=== PATIENT | male | born 1945 | race Caucasian/White ===

== ENCOUNTER 2017-06-20 14:25 | Day surgery (SDC) | payer OTHER ==
[~2017-06-20] VITALS: Ht 170.2 cm; Wt 75.9 kg
[~2017-06-20 14:25] MED LIST: ALEV220T14 PO; AMLO5TAB22 PO; APIX5TAB PO; ASPI81TA82 PO; BIOT50005 PO; CARD120C4 PO; CENTTAB9 PO; CITRTAB8 PO; METO25 PO; NEBI5 PO; OMEG100037 PO; OMEP20CA5 PO; ROSU20 PO
[2017-06-20 15:00] VITALS: BP 146/93; PULSE 62; RESP 16; TEMP 98; O2SAT 100
[2017-06-20] MEDS ORDERED: OMEP20CA2 (15:00)
[2017-06-20] MEDS ORDERED: ROSU20 PO (15:00)
[2017-06-20] MEDS ORDERED: APIX5TAB PO (15:00)
[2017-06-20] MEDS ORDERED: DILT120C15 (15:00)
[2017-06-20] MEDS ORDERED: METO25TA3 PO (15:00)
[2017-06-20 15:27] LABS: AUTOMATED NEUTROPHIL # 4.5 TH/MM3 (1.8-7.7); BASOPHIL # 0.1 TH/MM3 (0-0.2); EOSINOPHIL # 0.6 TH/MM3 (0-0.4); EOSINOPHIL % 7.6 % (0.0-4.0); HEMATOCRIT 46.5 % (39.0-51.0); HEMO FLAGS DIFF FINAL; LYMPH % 20.6 % (9.0-44.0); LYMPHOCYTE # 1.6 TH/MM3 (1.0-4.8); MEAN CORPUSCULAR HEMOGLOBIN 30.8 PG (27.0-34.0); MEAN CORPUSCULAR HGB CONC 33.2 % (32.0-36.0); MONO % 10.8 % (0.0-8.0); PLATELET COUNT 201 TH/MM3 (150-450); RED CELL DISTRIBUTION WIDTH 13.3 % (11.6-17.2); WHITE BLOOD COUNT 7.6 TH/MM3 (4.0-11.0)
[2017-06-20 15:37] LABS: APTT (PATIENT) 28.2 SEC (24.3-30.1); BICARBONATE 30.6 MEQ/L (21.0-32.0); POTASSIUM 4.1 MEQ/L (3.5-5.1); PROTHROMBIN TIME - PATIENT 10.6 SEC (9.8-11.6)
[2017-06-20] MEDS ORDERED: INSULIN HUMAN REGULAR 1,000 UNITS/10 ML VIAL SQ PRN (16:00)
[2017-06-20] MEDS ORDERED: METOPROLOL TARTRATE 25 MG TAB PO PRN (16:00)
[2017-06-20] MEDS ORDERED: SODIUM CHLORID 0.9% 500 ML INJ 500 ML IV SCH (16:00)
[2017-06-20] MEDS ORDERED: LORazepam 1 MG TAB SL SCH (16:00)
[2017-06-20] MEDS ORDERED: SODIUM CHLORID 0.9% 500 ML IV PRN (16:00)
[2017-06-20] MEDS ORDERED: CHLORHEXIDINE GLUCONATE 2 % 1 PACK (2 CLOTHS) TOPICAL PRN (16:00)
[2017-06-20] MEDS ORDERED: POVIDONE IODINE 5% (ANTISEPSIS KIT) 4 APPLICATIONS EACH NARE PRN (16:00)
[2017-06-20] MEDS ORDERED: LACTATED RINGER'S 1000 ML IV PRN (16:00)
[2017-06-20] MEDS ORDERED: PROPOFOL 200 MG/20 ML AMP IV ONE (16:45)
[2017-06-20] MEDS ORDERED: HEPARIN-NS/PF INJ 500 ML ONE (16:55)
[2017-06-20] MEDS ORDERED: LEVOFLOXACIN 500 MG PREMIX INJ 100 ML IV ONE (17:11)
[2017-06-20] MEDS ORDERED: HEPARIN-D5W INJ 250 ML ONE (17:58)
[2017-06-20] MEDS ORDERED: HEPARIN SODIUM - IV 10,000 UNITS/10 ML VIAL ONE (17:59)
[2017-06-20] MEDS ORDERED: PROTAMINE SULFATE 50 MG/5 ML VIAL ONE (18:40)
[2017-06-20] MEDS ORDERED: ISOPROTERENOL HCL 1 MG/5 ML AMP ONE (18:41)
[2017-06-20] MEDS ORDERED: FUROSEMIDE 40 MG/4 ML VIAL ONE (19:13)
[2017-06-20] MEDS ORDERED: BACITRACIN OINT 0.9 GM PKT TOP ONE (19:15)
[2017-06-20] MEDS ORDERED: LORazepam 2 MG/ML VIAL IV PRN (19:15)
[2017-06-20] MEDS ORDERED: ATROPINE SULFATE 1 MG/ML VIAL IV PRN (19:15)
[2017-06-20] MEDS ORDERED: oxyCODONE/ACETAMINOPHEN 5 MG/325 MG TAB PO PRN ×2 (19:15)
[2017-06-20] MEDS ORDERED: SODIUM CHLOR 0.9% 250 ML INJ 250 ML IV PRN (19:15)
[2017-06-20] MEDS ORDERED: LIDOCAINE HCL 1% 50 ML VIAL INFIL PRN (19:15)
--- NOTE | 2017-06-20 19:26 | CATHPROC ---
[place] HIS Report Study Information Study Number Admission Scheduled Start Study Start [id number] Jun 20 2017 2:25PM 06/20/2017 Jun 20 2017 4:44PM [place] [facility] Electrophysiology Study Admit Source Facility Department Other [facility] Furnace Operator Physician and Clinical Staff Initial Jan Marie Research Executive Shoshana Suárez RCIS Other Anesthesia, CERTIFIED DETENTION DEPUTY Recorder Mary Jo Pleitez,RN Scrub Kristofer Holder,RT(R) Procedures Performed Procedure Location (Site) Vessel Name Ablation Procedure ICE CATHETER INSERT RA Atruim RF Ablation LT. ATRIUM LT. [facility]UM Equipment Time Network Systems Administrator Description Size Mfg Part Number Used/Scraped NEEDLE, TRANSSEPTAL NRG 98 16:46 [facility] [id number] Used C1 [employer]/ EP 16:46 KIT, TRANSDUCER / AFIB [id number] Used PACER [id number] CATHETER, TACTICATH ABLAT BUNDLE 16:46 [facility] Used 65 BUNDLE *[id number] BUNDLE [id number] CATHETER, FR7 OPTIMA SPIRAL 16:46 BUND[facility] FR7 *[id number]- Used BUNDLE BUNDLE [id number] 16:46 BUND[facility] CATHETER, JSN, QUAD BUNDLE FR 5 *[id number]- Used BUNDLE [id number] 16:46 BUND[facility] CATHETER, JSN, QUAD BUNDLE FR 5 *[id number]- Used BUNDLE [id number] SET, COOL POINT TUBING 16:46 BUNDLE-[facility] *[id number]- Used BUNDLE BUNDLE SHEATH, FR8.5 STEERABLE SM 16:46 BUNDLE-[facility] 71CM [id number] Used 71CM BUNDLE COVER, TRANSDUCER CABLE 16:46 [employer]E [employer] [id number] Used ACUNAV 16:46 CORDIS/PACER SHEATH, FR10 ADITHYA 11CM FR 10 [id number] Used 16:46 CORDIS/PACER SHEATH, FR9 ADITHYA 11CM FR 9 [id number] Used [id number] 16:46 MEDLINE IND[employer]ES PACK, CCL CUSTOM * Used *[id number] 16:46 MEDLINE PACER [place], LIMB * 2780 *[id number] Used [id number] 16:46 [employer] MEDICAL SHEATH, FR4.5 PRELUDE 11CM FR 4.5 Used [id number] 16:46 NAMIC TUBING, HIGH PRESSURE 48" 48" Used *[id number] 16:46 NAMIC TUBING, HIGH PRESSURE 48" 48" Used *[id number] 16:46 WEAVER MEDICAL BLANKET,WARM AIR CCL * Used *[id number] 16:46 [facility] MEDICAL ELECTRODE KIT, DARREN X SURFACE * [id number] Used 16:46 [facility] MEDICAL SHEATH, EPS, FR6 FAST CATH FR [id number] 16:46 [facility] MEDICAL SHEATH, EPS, FR7 FAST CATH FR [address] [id number] Used 16:46 [facility] MEDICAL SHEATH, EPS, FR8 FAST CATH FR 8 [id number] Used CATHETER, ACUNAV FR10 ICE [id number] 17:59 CLEMENTINE FR 10 Used (CLEMENTINE) *[id number] [facility], ELECTROSURGICAL 16:46 * [id number] *[id number] Used SURGICAL GROUNDING (BLUE) History: Allergies Allergy Reaction No Known Allergies HAYFEVER CONGESTION, HOARSE VOICE, STUFFINESS Cultivated Oat Pollen hay fever History: Risk Factors Hypertension Dyslipidemia Yes Yes Labs Hgb (g/dl) Hct (%) RBC (MIL/MM3) WBC (l/cumm) Platelets (thousands) 11.60-17.00 35.00-51.00 4.00-5.90 4.00-11.00 150.00-450.00 15.0 46 5 7.6 201 Glucose (mg/dl) BUN (mg/dl) Creatinine (mg/dl) BUN:Creatinine (1:x) 74.00-106.00 7.00-18.00 0.50-1.30 10.00-20.00 85 12 1.0 12 Na (meq/l) K (meq/l) 136.00-145.00 3.50-5.10 140 4.1 INR (PTT:PT) 0.90-1.10 1 Medication Medication Total Dose (Bolus/Oral) Medication Total Dosage/Unit 1% XYLOCAINE 40 mL HEPARIN 27126 units LASIX 40 mg PROTAMINE 40 mg Medications (Bolus/Oral) Medication Time Given Dosage/Unit Administered By Reason 1% XYLOCAINE 06/20/2017 5:46:00 PM 20 mL Jan Stephen 20 mL 1% XYLOCAINE given in lab by Jan Stephen in Left Groin via Subcutaneous. Ordered by Blade Stephen 1% XYLOCAINE 06/20/2017 5:51:19 PM 20 mL Jan Stephen 20 mL 1% XYLOCAINE given in lab by Jan Stephen in Right Groin via Subcutaneous. Ordered by Rochelle Stephen. HEPARIN 06/20/2017 6:00:03 PM 04034 units Anesthesia, CERTIFIED DETENTION DEPUTY As per physicians ve rbal order 87260 units HEPARIN given in lab by Anesthesia, CERTIFIED DETENTION DEPUTY via Peripheral IV. Ordered by Jan Stephen. Antonia son: As per physicians verbal order. HEPARIN 06/20/2017 6:13:59 PM 2000 units Anesthesia, CERTIFIED DETENTION DEPUTY As per physicians rikki bal order 2000 units HEPARIN given in lab by Anesthesia, CERTIFIED DETENTION DEPUTY via Peripheral IV. Ordered by Jan Stephen. Reas on: As per physicians verbal order. LASIX 06/20/2017 7:14:37 PM 40 mg Anesthesia, CERTIFIED DETENTION DEPUTY As per physicians verbal order 40 mg LASIX given in lab by Anesthesia, CERTIFIED DETENTION DEPUTY via Peripheral IV. Ordered by Jan Stephen. Reason: As per physicians verbal order. PROTAMINE 06/20/2017 7:15:13 PM 40 mg Anesthesia, CERTIFIED DETENTION DEPUTY As per physicians verb al order 40 mg PROTAMINE given in lab by Anesthesia, CERTIFIED DETENTION DEPUTY via Peripheral IV. Ordered by Jan Stephen. Reason: As per physicians verbal order. Medication (Drip) Medication Time Given Dosage/Unit Concentration/Unit Diluent (ml) Solution HEPARIN DRIP 06/20/2017 6:14:14 PM 1000 units/hr 37801 units 250 D5W 1000 units/hr HEPARIN DRIP given in lab by Anesthesia, CERTIFIED DETENTION DEPUTY via Peripheral IV. Pump/Drip Flow = 10 ml /hr using [place] [address] units in 250 ml. Ordered by Jan Stephen. Reason: As per physicians verbal order. ISUPREL 06/20/2017 6:53:00 PM 20 mcg/min 1 mg 250 NaCl .9 20 mcg/min ISUPREL given in lab by Anesthesia, CERTIFIED DETENTION DEPUTY via Peripheral IV. Pump/Drip Flow = 300 ml/hr usi ng NaCl .9 with a concentration of 1 mg in 250 ml. Ordered by Jan Stephen. Reason: As per physicians verbal order. LEVAQUIN 06/20/2017 5:15:37 PM 100 mL/hr 500 100 NaCl .9 100 mL/hr LEVAQUIN given by Anesthesia, CERTIFIED DETENTION DEPUTY via Peripheral IV. Pump/Drip Flow = 0 ml/hr using NaCl . 9 with a concentration of 500 in 100 ml. Ordered by Jan Stephen. Reason: As per physicians verbal order. larson insertion Initial Case Assessment Cardiovascular HR Rhythm NIBP Chest Pain 60 sr 167/75 0 Circulatory - Right Pulses Posterior Tibial 3 Scale (0,1,2,3,4,d) Circulatory - Left Pulses Posterior Tibial 3 Scale (0,1,2,3,4,d) Circulatory - Lower Extremities Color Lower Right Color Lower Left Normal Normal Neurological State Oriented to time-place- Alert Moves all extremities person Respiration - General Respiration Rate SpO2 (%) (B/min) 20 99 Final Case Assessment Cardiovascular HR Rhythm NIBP Chest Pain 78 sr 127/61 0 Edema Present Skin color Skin None Normal Warm Dry Circulatory - Right Pulses Posterior Tibial 2 Scale (0,1,2,3,4,d) Circulatory - Left Pulses Posterior Tibial 2 Scale (0,1,2,3,4,d) Circulatory - Lower Extremities Color Lower Right Color Lower Left Normal Normal Neurological State Lethargic Moves all extremities Respiration - General Respiration Rate SpO2 (%) (B/min) 18 98 Chronological Log Time Study Chronological Log 16:45:35 Patient arrived via Bed. 16:45:41 Patient Name, D.O.B, / Armband Verified By R.N. 16:45:42 Anesthesia arrived(reji hedis specialist) 16:53:16 Patient has been NPO for More than 6Hrs. 16:53:17 Skin Breakdown- 16:53:17 Patient Warmer Placed on the Table. 16:53:18 Disposable Defibrillator Pads Placed On Patient. 16:53:19 [place] Prominences Protected 16:53:20 A # 20 IV was noted in the Hand (right). Grade = 0 0.9ns kvo 16:53:21 A # 20 IV was noted in the Antecubital (left). Grade = 0 0.9ns kvo 16:53:25 History and physical on the chart or being dictated. Assessment: Initial Case, HR=60 BPM, Rhythm=sr, MRCS=319/75 mmhg, Chest Pain=0 Right Pulses: Post Tib=3 Left Pulses: Post Tib=3 17:01:58 Lower Right Extremities: Color=Normal Lower Left Extremities: Color=Normal Neurological: State=Alert, Ox3, HALL Respiration: Resp=20 B/min, SpO2=99 % 17:04:27 Table restraints applied according to hospital policy 17:06:33 Reference ECG taken 17:11:02 Anesthesiologist present for intubation. 14fr larson inserted w/o difficutly. clear yellow u rine obtained. 100 mL/hr LEVAQUIN given by Anesthesia, CERTIFIED DETENTION DEPUTY via Peripheral IV. Pump/Drip Flow = 0 ml/hr using NaCl .9 with a 17:15:37 concentration of 500 in 100 ml. Ordered by Jan Stephen. Reason: As per physicians verbal orde r. larson insertion 17:20:04 Bilateral groins prepped with 2% chlorhexidine, and with a 3 min. waiting time. 17:25:53 MD paged 17:37:00 MD arrived. Time Out. Correct patient, procedure, procedure equipment, site and side verified with physicia n present. Time 17:41:00 concurred by MD, individual staff and CERTIFIED DETENTION DEPUTY. Time Out #2 - Consents verified, patient in correct position, all results are labled and displa yed, safety precautions 17:41:27 taken, antibiotics administered. Time out concurred by MD, individual staff and CERTIFIED DETENTION DEPUTY in procedu re 17:41:37 Case Start 17:41:41 CARLA in progress 17:44:49 CARLA complete 17:46:00 20 mL 1% XYLOCAINE given in lab by Jan Stephen in Left Groin via Subcutaneous. Ordered by Jan Stephen. 17:47:23 Vascular access was obtained in the Fem Vein (left). 17:47:28 Vascular access was obtained in the Fem Vein (left). 17:47:43 Vascular access was obtained in the Fem Vein (left). 17:47:44 Vascular access was obtained in the Fem Art (left). 17:48:00 A SHEATH, FR4.5 PRELUDE 11CM FR 4.5 was advanced into the Fem Art (left) using the Modified Seldinger technique. 17:48:45 A SHEATH, EPS, FR6 FAST CATH FR 6 was advanced into the Fem Vein (left) using the Modified Seldinger technique. 17:50:53 A SHEATH, EPS, FR7 FAST CATH FR 7 was advanced into the Fem Vein (left) using the Modified Seldinger technique. 17:50:56 A SHEATH, FR10 ADITHYA 11CM FR 10 was advanced into the Fem Vein (left) using the Modified S eldinger technique. 17:51:19 20 mL 1% XYLOCAINE given in lab by Jan Stephen in Right Groin via Subcutaneous. Ordered b Jan Mccormick. 17:51:29 Vascular access was obtained in the Fem Vein (right). 17:51:43 A SHEATH, EPS, FR8 FAST CATH FR 8 was advanced into the Fem Vein (right) using the Modified Seldinger technique. A CATHETER, JSN, QUAD BUNDLE FR 5 was advanced vis Fem Vein (left) and placed in the CS. Placem ent was visually 17:54:24 confirmed under fluoroscopy. A CATHETER, JSN, QUAD BUNDLE FR 5 was advanced vis Fem Vein (left) and placed in the HIS. Place ment was 17:54:43 visually confirmed under fluoroscopy. 17:58:29 CATHETER, ACUNAV FR10 ICE ([place]) FR 10 Was Postioned. A SHEATH, FR8.5 STEERABLE SM 71CM BUNDLE 71CM was exchanged in the Fem Vein (right). This was n ecessary in 17:58:33 order to accomodate a larger catheter. 17:58:53 [place] [address] units HEPARIN given in lab by Anesthesia, CERTIFIED DETENTION DEPUTY via Peripheral IV. Ordered by Loida Stephen Reason: As per 18:00:03 physicians verbal order. 18:00:59 A eps was advanced to the right atrium and passed through the septal wall to the left atriu m. 18:01:00 [place] out A CATHETER, FR7 OPTIMA SPIRAL BUNDLE FR7 was advanced vis Fem Vein (right) and placed in the LA . Placement 18:01:32 was visually confirmed under fluoroscopy. Mapping in progress. 18:05:42 Activated Clotting Time Drawn 18:07:54 Mapping complete. Catheter was removed A CATHETER, TACTICATH ABLAT 65 BUNDLE was advanced vis Fem Vein (right) and placed in the LA. P lacement was 18:08:04 visually confirmed under fluoroscopy. 18:12:28 RF Ablation of the LT. ATRIUM with a CATHETER, TACTICATH ABLAT 65 BUNDLE. 18:12:39 ACT (Normal Range 90-180) = 330 2000 units HEPARIN given in lab by Anesthesia, CERTIFIED DETENTION DEPUTY via Peripheral IV. Ordered by Jan Stephen . Reason: As per 18:13:59 physicians verbal order. 1000 units/hr HEPARIN DRIP given in lab by Anesthesia, CERTIFIED DETENTION DEPUTY via Peripheral IV. Pump/Drip Flow = 10 ml/hr using 18:14:14 D5[place] [address] units in 250 ml. Ordered by Jan Stephen. Reason: As per aliyah hughes verbal order. 18:20:02 Activated Clotting Time Drawn 18:27:00 ACT (Normal Range 90-180) = 352 18:40:30 Ablation Catheter was removed A CATHETER, FR7 OPTIMA SPIRAL BUNDLE FR7 was advanced vis Fem Vein (right) and placed in the LA . Placement 18:41:03 was visually confirmed under fluoroscopy. 18:44:09 Mapping Catheter was removed A CATHETER, TACTICATH ABLAT 65 BUNDLE was advanced vis Fem Vein (right) and placed in the LA. P lacement was 18:44:18 visually confirmed under fluoroscopy. 18:44:22 RF Ablation of the LT. ATRIUM with a CATHETER, TACTICATH ABLAT 65 BUNDLE. 18:50:54 Ablation Catheter was removed A CATHETER, FR7 OPTIMA SPIRAL BUNDLE FR7 was advanced vis Fem Vein (right) and placed in the LA . Placement 18:51:09 was visually confirmed under fluoroscopy. 20 mcg/min ISUPREL given in lab by Anesthesia, CERTIFIED DETENTION DEPUTY via Peripheral IV. Pump/Drip Flow = 300 ml/ hr using NaCl .9 18:53:00 with a concentration of 1 mg in 250 ml. Ordered by Jan Stephen. Reason: As per physicians rikki bal order. 19:03:56 Isuprel off. 19:05:50 Catheter(s) removed without difficulty A SHEATH, FR9 ADITHYA 11CM FR 9 was exchanged in the Fem Vein (right). This was necessary in ord er to minimize 19:07:42 site leakage. 19:08:17 Sheath(s) left in place, sutured, 0.9ns connected and will be removed in Holding Area 40 mg LASIX given in lab by Anesthesia, CERTIFIED DETENTION DEPUTY via Peripheral IV. Ordered by Jan Stephen. Reaso n: As per physicians 19:14:37 verbal order. 40 mg PROTAMINE given in lab by Anesthesia, CERTIFIED DETENTION DEPUTY via Peripheral IV. Ordered by Jan Stephen. R karolina: As per 19:15:13 physicians verbal order. 19:23:06 Activated Clotting Time Drawn 19:23:14 Sterile dressing applied to site 19:23:16 No case complications noted. 19:23:22 Case End 19:23:41 Ablation procedure performed: AFIB. 19:23:47 EP Procedure was performed. 19:24:00 PACU called. Spoke to Augusto 19:24:16 Bedside Report will be given. 19:24:27 Defibrillator and ground pads removed. Skin intact. Assessment: Final Case, HR=78 BPM, Rhythm=sr, BLCD=381/61 mmhg, Chest Pain=0, Edema=None, [place] r=Normal, Skin = Warm, Dry Right Pulses: Post Tib=2 Left Pulses: Post Tib=2 19:24:34 Lower Right Extremities: Color=Normal Lower Left Extremities: Color=Normal Neurological: State=Lethargic, HALL Respiration: Resp=18 B/min, SpO2=98 % 19:25:32 ACT (Normal Range 90-180) = 153 19:27:51 Patient moved to stretcher End Study - Contrast Media Used In Study Contrast Total Opened (mL) Total Used (mL) Total Wasted (mL) Unspecified 0 0 0 End Study - Maximum Contrast Load Max Contrast Load (mL) 379.5 End Study - Radiation Exposure Fluoro Time (minutes) 1.1 End Study - Patient Disposition Complications Transferred To Interventional Outcome No Telemetry Bed successful
[2017-06-20] MEDS ORDERED: DO NOT ADM ANY ANTICOAGULANT DRUGS PRN (19:37)
[2017-06-20] MEDS ORDERED: ONDANSETRON HCL 4 MG/2 ML VIAL IV PRN (20:00)
[2017-06-20] MEDS ORDERED: METOCLOPRAMIDE HCL 10 MG/2 ML VIAL IV PRN (20:00)
[2017-06-20] MEDS: APIXABAN 5 MG TABLET PO SCH (21:00)
[2017-06-20] MEDS: METOPROLOL TARTRATE 25 MG TAB PO SCH (21:00)
[2017-06-21] VITALS (9 sets, daily range): BP systolic 106–145; BP diastolic 67–82; PULSE 65–74; RESP 18; TEMP 98–98.5; O2SAT 95–96
[2017-06-21 06:50] LABS: PROTHROMBIN TIME - PATIENT 11.4 SEC (9.8-11.6)
--- NOTE | 2017-06-21 08:26 | PD.CARD ---
Atrial Fibrillation Ablation PROCEDURE DATE: Jun 20, 2017 PROCEDURES PERFORMED: 1. Electrophysiology study on Isuprel infusion 2. CS cannulation 3. 3-D mapping 4. Transseptal approach 5. Right and left heart catheterization 6. Intracardiac echo 7. Radiofrequency ablation of atrial fibrillation 8. Pulmonary vein isolation 9. Posterior wall ablation 10. Mitral line creation 11. Left atrial tachycardia ablation 12. Anterior wall ablation INDICATIONS FOR THE PROCEDURE Mr. Romo is a 72-year-old male with atrial fibrillation, very symptomatic, on anticoagulation, referred for electrophysiology study and ablation. The risks, the nature and the benefits of the procedure were clearly stated to him. The risks include pneumothorax, cardiac perforation, stroke, need for open heart surgery and even . The patient understood and agreed to proceed. DESCRIPTION OF THE PROCEDURE IN DETAIL After written informed consent was obtained prior to esophageal echocardiogram, the patient was kept on the table where he was prepped and draped in the usual sterile fashion. Conscious sedation was initiated and maintained throughout the procedure by the anesthesiologist. Once sedation was verified, the right and left inguinal areas were anesthetized with 2% Xylocaine. Using modified Seldinger technique, the left femoral vein was cannulated on three occasions, three guidewires were advanced. Over the wire a 6, 7 and a 10-Chadian Hemaquet were advanced. Then the left femoral artery was cannulated on one occasion, one guidewire was advanced. Over the wire a 4-Chadian Hemaquet was advanced. Then the right femoral vein was cannulated on one occasion, one guidewire was advanced. Over the wire a 8-Chadian Hemaquet was advanced. Then under fluoroscopic guidance through the 6 and 7-Chadian Hemaquet, two 5-Chadian Leticia curved quadripolar electrophysiology catheters were advanced and placed around the His as well as coronary sinus. Basic interval was measured. The patient was in sinus rhythm. Through the 10-Chadian Hemaquet, a Cordis Vera AcuNav intracardiac echo catheter was advanced and placed at the right atrium. Multiple view was obtained. There is no pericardial effusion, pulmonary vein was seen, atrial septal was visualized. Then the 8-Chadian Hemaquet in the right femoral vein was exchanged for Agilis transseptal sheath that was placed all the way to the superior vena cava. Through the sheath a Jen needle was advanced, then the sheath, the dilator and the needle were pulled back until foci engaged. Once engaged, the needle was advanced. RF was delivered for 2 seconds. I was able to cross into the left atrium. Once the needle crossed, the dilator was advanced. Once the dilator crossed, the sheath was advanced. Once the sheath crossed, the dilator and the needle were removed. At this point I did flushed the system and fluid movement was seen in the left atrium the indicates the sheath is in good position. The patient already received 10,000 units of heparin. The goal is to keep an ACT around 350 during ablation. Then through the sheath a [facility]. Oscar 20 pulse circumferential catheter was advanced. Using [employer] endocardial solution mapping system, a two-dimensional configuration of the left atrium was obtained. Points were taken at the left superior and inferior veins, right superior and inferior veins, mitral valve, and appendages. Then through the sheath a St. Oscar TactiCath 65cm 3.5mm irrigated tipped mapping and radiofrequency ablation catheter was advanced. Esophageal probe was placed temperature monitoring during ablation. When it increased to 0.5 degrees Celsius above baseline, I moved to a different area of the atrium. First I did isolate the left superior and inferior vein. Posterior was ablated. Patient went into atrial fibrillation. Then in left atrial tachycardia. During ablation at the mitral valve, converted into sinus rhythm. Then the right superior and inferior veins were isolated. I did remap the atrium. There is no significant signal in the atrium. At this point I decided to proceed with cardioversion. At that point I did advance the circumferential catheter again into the vein. There was no signal into the vein, pacing from the vein showed no conduction to the atrium. Isuprel infusion was initiated at 20 mcg for 15 minutes. No tachyarrhythmia was induced, post Isuprel no tachyarrhythmia was induced. At that point the procedure was complete. All catheters were removed, atrial septal sheath was exchanged for 9-Chadian Hemaquet , intracardiac echo showed no pericardial effusion. There is still good flow in the pulmonary vein. The patient is going to be transferred to the recovery room. No incident report. The patient tolerated the procedure. Blood loss was minimal. FINDINGS 1. Electrocardiogram: At baseline the patient was in sinus rhythm, post procedure the patient was in sinus rhythm. 2. Basic interval: Base cycle length was around 840. 3. Tachyarrhythmia: Atrial fibrillation was mapped and ablated. Atrial tachycardia was ablated. The ablation was successful. CONCLUSION Successful electrophysiology study, mapping, radiofrequency ablation of atrial fibrillation, left atrial tachycardia, pulmonary vein isolation, posterior ablation, mitral line creation, left atrial tachycardia. COMMENTS AND RECOMMENDATIONS The patient is going to be transferred to the telemetry unit. Will be observed and when stable can be discharged home. Jan Stephen MD Jun 21, 2017 08:26
--- NOTE | 2017-06-21 08:28 | HHI.PR ---
Subjective Remarks Feeling fine Objective Vital Signs Date Time Temp Pulse Resp B/P Pulse Ox O2 Delivery O2 Flow Rate FiO2 06/21/17 06:00 68 06/21/17 05:00 68 06/21/17 04:26 98.5 71 18 106/67 95 06/21/17 04:00 65 06/21/17 03:00 66 06/21/17 02:23 74 06/21/17 02:16 98.4 69 18 116/68 96 06/21/17 02:00 68 13 101/59 95 Room Air 06/21/17 01:00 65 15 102/60 96 Room Air 06/21/17 00:00 97.9 65 13 106/61 96 Room Air 06/20/17 23:00 66 14 125/70 96 Room Air 06/20/17 22:30 63 17 110/64 96 Room Air 06/20/17 22:00 97.6 65 16 112/65 96 Room Air 06/20/17 21:45 63 17 104/63 96 Room Air 06/20/17 21:30 64 17 104/64 96 Room Air 06/20/17 21:15 63 16 104/62 96 Room Air 06/20/17 21:00 97.6 65 13 118/63 99 Room Air 06/20/17 20:45 64 12 111/63 98 Nasal Cannula 2 06/20/17 20:30 97.4 61 14 107/65 98 Nasal Cannula 2 06/20/17 20:15 67 12 100/61 97 Nasal Cannula 2 06/20/17 20:12 63 9 100/62 98 Nasal Cannula 2 06/20/17 20:10 64 10 99 Nasal Cannula 2 06/20/17 20:09 64 12 98/58 98 Nasal Cannula 2 06/20/17 20:06 66 11 104/63 98 Nasal Cannula 2 06/20/17 20:03 64 9 105/61 98 Nasal Cannula 2 06/20/17 20:00 65 9 104/61 98 Nasal Cannula 2 06/20/17 19:57 66 13 106/65 96 Nasal Cannula 2 06/20/17 19:55 65 13 98 Nasal Cannula 2 06/20/17 19:54 65 14 112/65 98 Nasal Cannula 2 06/20/17 19:51 66 12 115/66 98 Nasal Cannula 2 06/20/17 19:48 66 9 113/67 100 Nasal Cannula 2 06/20/17 19:45 69 11 124/66 95 Nasal Cannula 2 06/20/17 19:42 97.4 66 13 121/60 96 Nasal Cannula 2 06/20/17 15:00 98.0 62 16 146/93 100 I/O 06/20/17 06/20/17 06/20/17 06/21/17 06/21/17 06/21/17 07:00 15:00 23:00 07:00 15:00 23:00 Intake Total 800 ml 420 ml Output Total 1302 ml 1300 ml Balance -502 ml -880 ml Intake Oral 420 ml Other 800 ml Output Urine Total 1300 ml 1300 ml Estimated Blood Loss 2 ml Result Diagram: 06/20/17 1500 06/20/17 1500 Imaging Alert, fully oriented Lungs: ventilated Heart: S1, S2 regular, no gallop Abdomen: soft, no mass Ext: no edema Current Medications Medications (Trade) Dose Ordered Sig/Lucy Route Start Time Stop Time Status Last Admin Sodium Chloride 500 ml @ 30 mls/hr [id number] IV 06/20/17 16:00 Lactated Ringer's 1,000 ml @ 30 mls/hr Q24H PRN IV 06/20/17 16:00 06/23/17 15:59 (NS 500 ml Inj) 500 ml @ 30 mls/hr [id number] PRN IV 06/20/17 16:00 06/23/17 15:59 (Percocet 5-325 Mg) 1 tab Q4H PRN PO 06/20/17 19:15 (Percocet 5-325 Mg) 2 tab Q4H PRN PO 06/20/17 19:15 (Ativan Inj) 0.5 mg UNSCH PRN IV 06/20/17 19:15 06/21/17 19:14 Atropine Sulfate 0.5 mg 0.5 mg UNSCH PRN IV 06/20/17 19:15 (NS 250 ml Inj) 250 ml @ 500 mls/hr ONCE PRN IV 06/20/17 19:15 06/21/17 19:14 (Reglan Inj) 10 mg Q4H PRN IV 06/20/17 20:00 (Zofran Inj) 4 mg Q4H PRN IV 06/20/17 20:00 (Xylocaine 1% Inj (50 ml)) 10 ml UNSCH PRN INFIL 06/20/17 19:15 06/21/17 19:14 (Eliquis) 5 mg BID PO 06/20/17 21:00 (Lopressor) 25 mg BID PO 06/20/17 21:00 (Lipitor) 40 mg DAILY PO 06/21/17 09:00 Miscellaneous Information ALL NURSING DEPARTME... UNSCH PRN .XX 06/20/17 19:37 06/21/17 19:36 Assessment and Plan Problem List: (1) Afib Status: Acute Plan: SP ablation. Doing well In sinus rhythm. [facility] Follow up as scheduled Jan Stephen MD Jun 21, 2017 08:28
[2017-06-21] MEDS: METOPROLOL TARTRATE 25 MG TAB PO SCH (08:37)
[2017-06-21] MEDS: APIXABAN 5 MG TABLET PO SCH (08:37)
[2017-06-21] MEDS ORDERED: ATORVASTATIN 40 MG TAB PO SCH (09:00)
--- NOTE | 2017-06-21 15:39 | EKG ---
Date Performed: 06/20/2017 Time Performed: 20:19:55 PTAGE: 72 years EKG: Sinus rhythm NORMAL ECG PREVIOUS TRACING : 05/02/2016 22.44 DOCTOR: Jan Stephen Interpretating Date/Time 06/21/2017 15:37:06
--- NOTE | 2017-06-21 15:46 | EKG ---
Date Performed: 06/20/2017 Time Performed: 16:39:04 PTAGE: 72 years EKG: Sinus bradycardia. Normal ECG except for rate PREVIOUS TRACING : 05/02/2016 22.44 DOCTOR: Jan Stephen Interpretating Date/Time 06/21/2017 15:41:28
== END 2017-06-21 10:09 | disposition home or self-care (01) ==
LOC: HDIC 14:25 → HDOC 14:25 → HCIS 06-21 02:21 → HDOC 06-21 10:09
PROVIDERS: ATTEND Internal Medicine Interventional Cardiology
DX: I48.0 Paroxysmal atrial fibrillation (principal); I47.1 Supraventricular tachycardia; I10 Essential (primary) hypertension
CPT/HCPCS: 80048; 85002; 85025; 85610; 85730; 86850; 86900; 86901; 93005; 93312; 93320; 93325; 93613; 93623; 93656; 93662; C1730; C1731; C1732; C1759; C1766; C2630; J1644; J1940; J1956; J2720; J3010

== ENCOUNTER 2018-05-09 17:47 | Emergency (ER) | payer OTHER ==
[~2018-05-09] VITALS: Ht 170.2 cm; Wt 78.8 kg
[~2018-05-09 17:47] MED LIST changes: -ALEV220T14 PO; -AMLO5TAB22 PO; -ASPI81TA82 PO; -BIOT50005 PO; -CARD120C4 PO; -CENTTAB9 PO; -CITRTAB8 PO; -METO25 PO; +METO25TA3 PO; -NEBI5 PO; -OMEG100037 PO; +OMEP20CA2; -OMEP20CA5 PO
[2018-05-09 18:17] VITALS: BP 222/97; PULSE 55; RESP 16; TEMP 99.1; O2SAT 97
[2018-05-09 18:33] VITALS: BP 200/88
[2018-05-09] MEDS ORDERED: SODIUM CHLORIDE 0.9% FLUSH 10 ML FLUSH IV FLUSH PRN (19:30)
--- NOTE | 2018-05-09 19:32 | PD ---
HPI Chief Complaint: Abdominal Pain Time Seen by Provider: 19:23 Travel History International Travel<30 days: No Contact w/Intl Traveler<30days: No Traveled to known affect area: No History of Present Illness HPI The patient is a 72-year-old male who complains of abdominal pain, mostly in the right upper quadrant, that goes around to the right subscapular area since approximately 4 PM today. He began nausea with vomiting at 5:45 PM. His pain is a 10/10 and aching in quality. He has a history of kidney stones but states that this does not feel like his previous kidney stones. His only surgery is for prostate cancer, he still has his gallbladder and appendix. Several weeks ago the patient was sleeping and woke up vomiting but this resolved quickly. PFSH Past Medical History Hx Anticoagulant Therapy: Yes (ASA 81MG DAILY) Arthritis: Yes (RIGHT KNEE) Asthma: Yes ( A CHILD) Atrial Fibrillation: Yes (STATES HAS CONVERTED) Autoimmune Disease: No Blood Disorders: No Anxiety: No Depression: No Heart Rhythm Problems: Yes (afib 8 years ago - self limiting. and resolved Dr Ballard) Cancer: Yes (prostate) Cardiovascular Problems: Yes High Cholesterol: Yes Chemotherapy: No Chest Pain: No Congestive Heart Failure: No COPD: No Cerebrovascular Accident: No Diabetes: No Diminished Hearing: No Endocrine: No Gastrointestinal Disorders: Yes GERD: Yes Glaucoma: No Genitourinary: Yes (kidney stones x2. passed both without intervention) Headaches: Yes (SINUS HEADACHES) Hepatitis: No Hiatal Hernia: No Hypertension: Yes Immune Disorder: No Kidney Stones: Yes Musculoskeletal: Yes Neurologic: Yes (peripheral neuropathy) Psychiatric: No Reproductive: No Respiratory: Yes Immunizations Current: Yes Migraines: No Myocardial Infarction: No Radiation Therapy: No Renal Failure: No Seizures: No Sickle Cell Disease: No Sleep Apnea: No Thyroid Disease: No Ulcer: No Past Surgical History Abdominal Surgery: No AICD: No Appendectomy: No Arteriovenous Shunt: No Cardiac Surgery: No Cholecystectomy: No Ear Surgery: No Endocrine Surgery: No Eye Surgery: No Genitourinary Surgery: No Gynecologic Surgery: No Insulin Pump: No Joint Replacement: No Oral Surgery: No Pacemaker: No Thoracic Surgery: No Other Surgery: Yes (sinus surgery) Social History Alcohol Use: Yes (daily wine) Tobacco Use: No Substance Use: No Allergies-Medications (Allergen,Severity, Reaction): Coded Allergies: grass pollen (Unverified Allergy, Unknown, 05/09/18) Uncoded Allergies: hay fever (Allergy, Unknown, 06/20/17) Reported Meds & Prescriptions Reported Meds & Active Scripts Active Percocet (Oxycodone-Acetaminophen) 5-325 mg Tab 1 Tab PO Q6H PRN Prochlorperazine Maleate 10 Mg Tab 10 Mg PO Q4H PRN Reported Aspirin 81 Mg Chew 81 Mg CHEW DAILY Omeprazole 20 Mg Cap Metoprolol Tartrate 25 Mg Tab 25 Mg PO BID Crestor (Rosuvastatin Calcium) 20 Mg Tab 20 Mg PO DAILY Review of Systems Except as stated in HPI: all other systems reviewed are Neg Physical Exam Narrative GENERAL: The patient is alert, oriented 3 in moderate to severe distress with his abdominal discomfort. His vital signs show blood pressure 222/97 and repeat 200/88 with a heart rate of 55. The rest of his vital signs are normal. SKIN: Focused skin assessment warm/dry. HEAD: Atraumatic. Normocephalic. EYES: Pupils equal and round. No scleral icterus. No injection or drainage. ENT: No nasal bleeding or discharge. Mucous membranes pink and moist. NECK: Trachea midline. No JVD. CARDIOVASCULAR: Regular rate and rhythm. No murmur appreciated. RESPIRATORY: No accessory muscle use. Clear to auscultation. Breath sounds equal bilaterally. GASTROINTESTINAL: Abdomen soft except for right upper quadrant, with tenderness in the right upper quadrant to direct palpation, Ritter sign is positive, nondistended. Hepatic and splenic margins not palpable. Slight guarding in the right upper quadrant but otherwise the abdomen is soft. MUSCULOSKELETAL: No obvious deformities. No clubbing. No cyanosis. No edema. NEUROLOGICAL: Awake and alert. No obvious cranial nerve deficits. Motor grossly within normal limits. Normal speech. PSYCHIATRIC: Appropriate mood and affect; insight and judgment normal. Data Data Last Documented VS Vital Signs Date Time Temp Pulse Resp B/P (MAP) Pulse Ox O2 Delivery O2 Flow Rate FiO2 05/09/18 20:05 68 18 165/76 (105) 97 Room Air 05/09/18 18:17 99.1 Orders Orders Complete Blood Count With Diff (05/09/18 19:28) Comprehensive Metabolic Panel (05/09/18 19:28) Lipase (05/09/18 19:28) Urinalysis - C+S If Indicated (05/09/18 19:28) Ct Abd/Pel W Iv Contrast(Rout) (05/09/18 19:28) Iv Access Insert/Monitor (05/09/18 19:28) Ecg Monitoring (05/09/18 19:28) Oximetry (05/09/18 19:28) Sodium Chloride 0.9% Flush (Ns Flush) (05/09/18 19:30) Sodium Chlor 0.9% 1000 Ml Inj (Ns 1000 M (05/09/18 19:36) Prochlorperazine Inj (Compazine Inj) (05/09/18 19:45) Hydromorphone Pf Inj (Dilaudid Pf Inj) (05/09/18 20:00) Labs Laboratory Tests Test 05/09/18 19:45 05/09/18 21:45 White Blood Count 9.0 TH/MM3 Red Blood Count 4.64 MIL/MM3 Hemoglobin 15.1 GM/DL Hematocrit 45.0 % Mean Corpuscular Volume 97.0 FL Mean Corpuscular Hemoglobin 32.5 PG Mean Corpuscular Hemoglobin Concent 33.5 % Red Cell Distribution Width 12.1 % Platelet Count 181 TH/MM3 Mean Platelet Volume 9.3 FL Neutrophils (%) (Auto) 79.7 % Lymphocytes (%) (Auto) 9.5 % Monocytes (%) (Auto) 6.7 % Eosinophils (%) (Auto) 3.5 % Basophils (%) (Auto) 0.6 % Neutrophils # (Auto) 7.1 TH/MM3 Lymphocytes # (Auto) 0.9 TH/MM3 Monocytes # (Auto) 0.6 TH/MM3 Eosinophils # (Auto) 0.3 TH/MM3 Basophils # (Auto) 0.1 TH/MM3 CBC Comment DIFF FINAL Differential Comment Blood Urea Nitrogen 11 MG/DL Creatinine 0.89 MG/DL Random Glucose 120 MG/DL Total Protein 7.6 GM/DL Albumin 3.8 GM/DL Calcium Level 8.9 MG/DL Alkaline Phosphatase 65 U/L Aspartate Amino Transf (AST/SGOT) 22 U/L Alanine Aminotransferase (ALT/SGPT) 28 U/L Total Bilirubin 0.8 MG/DL Sodium Level 138 MEQ/L Potassium Level 3.9 MEQ/L Chloride Level 103 MEQ/L Carbon Dioxide Level 26.8 MEQ/L Anion Gap 8 MEQ/L Estimat Glomerular Filtration Rate 85 ML/MIN Lipase 112 U/L Urine Color YELLOW Urine Turbidity CLEAR Urine pH 6.5 Urine Specific [place] 1.015 Urine Protein NEG mg/dL Urine Glucose (UA) NEG mg/dL Urine Ketones TRACE mg/dL Urine Occult Blood NEG Urine Nitrite NEG Urine Bilirubin NEG Urine Urobilinogen 0.2 MG/DL Urine Leukocyte Esterase NEG Urine RBC 0-2 /hpf Urine WBC 0-2 /hpf Urine Squamous Epithelial Cells 0-5 /hpf Urine Amorphous Sediment FEW Urine Bacteria NONE /hpf Microscopic Urinalysis Comment CULT NOT INDICATED MDM Medical Decision Making Medical Screen Exam Complete: Yes Emergency Medical Condition: Yes Medical Record Reviewed: Yes Interpretation(s) The CT abdomen with contrast shows scattered diverticuli throughout the sigmoid colon but no inflammatory changes are noted. There is no free air or free fluid seen within the abdomen and no findings to indicate of bowel obstruction. The appendix is visualized and is unremarkable in appearance. The CBC is normal except for a neutrophil count of 80. The complete metabolic profile shows a GFR of 85 but is otherwise normal. The lipase is normal. The urinalysis is normal except for trace ketones. Differential Diagnosis Cholecystitis, cholelithiasis with colic, ulcer pain, colitis, urinary tract infection-pyelonephritis, gastroenteritis Narrative Course The patient had right upper quadrant pain which has resolved completely with pain and nausea medicines. He is no longer tender in the right upper quadrant. The pain radiated to the infrascapular area on the right and this could be cholelithiasis with colic. Instead of gallstones he has only sludge. It is still possible that this may have temporarily obstructed his gallbladder. Diagnosis Primary Impression: Gallbladder colic Additional Instructions: As we discussed, this may be from your gallbladder sludge. If this becomes a recurrent problem he will need to follow-up with a surgeon. The decision to remove your gallbladder will be between you and the surgeon. In the meantime you should avoid fatty foods and drink plenty of liquids. You are given pain and nausea medicines, do not drink alcohol or drive on these medications. Med/Other Pt SpecificInfo: Prescription(s) given Scripts Oxycodone-Acetaminophen (Percocet) 5-325 mg Tab 1 TAB PO Q6H Y for PAIN, #15 TAB 0 Refills Prov: Roly Jackson MD 05/09/18 Prochlorperazine Maleate (Prochlorperazine Maleate) 10 Mg Tab 10 MG PO Q4H Y for NAUSEA OR VOMITING, #20 TAB 0 Refills Prov: Roly Jackson MD 05/09/18 Disposition: 01 DISCHARGE HOME Condition: Stable Roly Jackson MD May 09, 2018 19:32
[2018-05-09 19:36] VITALS: O2SAT 97
[2018-05-09] MEDS ORDERED: SODIUM CHLOR 0.9% 1000 ML INJ 1,000 ML IV SCH (19:36)
[2018-05-09] MEDS ORDERED: PROCHLORPERAZINE INJ 10 MG/2 ML VIAL IV PUSH ONE (19:45)
[2018-05-09] MEDS ORDERED: HYDROmorphone HCL PF 1 MG/ML VIAL IVS ONE (19:45)
[2018-05-09] MEDS ORDERED: IOHEXOL 350 MG/ML 10 ML VIAL (for RAD DIAG) IVCONTRAST ONE (19:53)
[2018-05-09] MEDS ORDERED: HYDROmorphone HCL PF 2 MG/ML VIAL IV PUSH ONE (20:00)
[2018-05-09 20:01] VITALS: PULSE 63; RESP 18; O2SAT 93
[2018-05-09 20:05] VITALS: BP 165/76; PULSE 68; RESP 18; O2SAT 97
[2018-05-09] MEDS ORDERED: ASPI-516 CHEW (20:16)
[2018-05-09 20:21] LABS: AUTOMATED NEUTROPHIL # 7.1 TH/MM3 (1.8-7.7); BASOPHIL # 0.1 TH/MM3 (0-0.2); BASOPHIL % 0.6 % (0.0-2.0); EOSINOPHIL # 0.3 TH/MM3 (0-0.4); EOSINOPHIL % 3.5 % (0.0-4.0); HEMOGLOBIN 15.1 GM/DL (13.0-17.0); LYMPH % 9.5 % (9.0-44.0); LYMPHOCYTE # 0.9 TH/MM3 (1.0-4.8); MEAN CORPUSCULAR HEMOGLOBIN 32.5 PG (27.0-34.0); MEAN CORPUSCULAR HGB CONC 33.5 % (32.0-36.0); MEAN PLATELET VOLUME 9.3 FL (7.0-11.0); MONO % 6.7 % (0.0-8.0); MONOCYTE # 0.6 TH/MM3 (0-0.9); NEUT % 79.7 % (16.0-70.0); PLATELET COUNT 181 TH/MM3 (150-450); RED BLOOD COUNT 4.64 MIL/MM3 (4.50-5.90); RED CELL DISTRIBUTION WIDTH 12.1 % (11.6-17.2)
[2018-05-09 20:33] LABS: CHLORIDE 103 MEQ/L (98-107); SODIUM (NA) 138 MEQ/L (136-145)
[2018-05-09 20:40] LABS: ALBUMIN 3.8 GM/DL (3.4-5.0); BICARBONATE 26.8 MEQ/L (21.0-32.0); CALCIUM 8.9 MG/DL (8.5-10.1); GLUCOSE,RANDOM 120 MG/DL (74-106)
[2018-05-09 20:41] LABS: BLOOD UREA NITROGEN 11 MG/DL (7-18)
[2018-05-09 20:42] LABS: ALT (GPT) 28 U/L (12-78); AST (GOT) 22 U/L (15-37)
[2018-05-09 20:44] LABS: CREATININE 0.89 MG/DL (0.60-1.30); GLOMERULAR FILTRATION RATE 85 ML/MIN (>89); TOTAL BILIRUBIN ADULT 0.8 MG/DL (0.2-1.0); TOTAL PROTEIN 7.6 GM/DL (6.4-8.2)
[2018-05-09 20:45] LABS: ALKALINE PHOSPHATASE 65 U/L (45-117)
--- NOTE | 2018-05-09 21:46 | RADRPT ---
EXAM DATE: 05/09/2018 9:30 PM EDT AGE/SEX: 72 years / Male INDICATIONS: Abdominal pain. CLINICAL DATA: This is the patient's initial encounter. Patient reports that signs and symptoms have been present for 1 day and indicates a pain score of 8/10. MEDICAL/SURGICAL HISTORY: Gastroesophageal reflux disease. Hypertension. None. ORAL CONTRAST: No oral contrast ingested. RADIATION DOSE: 12.53 CTDI (mGy) COMPARISON: No prior exams available for comparison. TECHNIQUE: Multiple contiguous axial images were obtained through the abdomen and pelvis following b olus infusion of 100 ml Omnipaque 350 (iohexol) nonionic water-soluble contrast as a single exam do se. No oral contrast ingested. Using automated exposure control and adjustment of the mA and/or kV a ccording to patient size, radiation dose was kept as low as reasonably achievable to obtain optimal d iagnostic quality images. DICOM format image data is available electronically for review and compari son. FINDINGS: The limited portion of lung base visualized is clear. The appearance of the liver, spleen, pancreas, adrenal glands and kidneys is within normal limits. Note is made of a small amount of sludge in the dependent portion of the gallbladder. The abdominal aorta is normal in caliber. There is no retroperitoneal lymphadenopathy. No free air free fluid is seen within the upper abdomen. The visualized loops of small and large eloisa l are unremarkable. The graft imaging through the pelvis is provided. There are scattered diverticuli throughout the sigmoid colon. No definite inflammatory changes are seen. No free fluid is seen withi n the pelvis. No iliac or inguinal adenopathy is present. There are small bilateral inguinal hernias. The visualized osseous structures demonstrate degenerative changes but are otherwise intact. CONCLUSION: 1. Scattered diverticuli throughout the sigmoid colon. No inflammatory changes are identified. 2. No free air or free fluid seen within the abdomen. No findings to indicate a bowel obstruction ar e evident. The appendix is visualized and is unremarkable in appearance. Electronically signed by: Kevin Gonzalez MD 05/09/2018 9:44 PM EDT
[2018-05-09] MEDS ORDERED: PERC5TAB12 PO (22:07)
[2018-05-09] MEDS ORDERED: PROC10TA PO (22:07)
[2018-05-09 22:10] LABS: BILIRUBIN, URINE NEG (NEG); BLOOD, URINE NEG (NEG); GLUCOSE,URINE NEG (NEG); KETONE, URINE TRACE mg/dL (NEG); NITRITE,URINE NEG (NEG); PH, URINE 6.5 (5.0-8.5); URINE COLOR YELLOW (YELLW/STRAW); URINE LEUKOCYTE ESTERASE NEG (NEG)
[2018-05-09 22:15] LABS: AMORPHOUS SEDIMENT, URINE FEW; RBC, URINE 0-2 /hpf (0-3); SQUAMOUS EPITHELIAL CELL URINE 0-5 /hpf (0-5); WBC, URINE 0-2 /hpf (0-5)
[2018-05-09 22:52] VITALS: BP 142/73
== END 2018-05-09 22:58 | disposition home or self-care (01) ==
LOC: PHED 17:47
DX: K80.20 Calculus of gallbladder without cholecystitis without obstruction (principal); E78.00 Pure hypercholesterolemia, unspecified; K21.9 Gastro-esophageal reflux disease without esophagitis; I10 Essential (primary) hypertension; Z79.82 Long term (current) use of aspirin
CPT/HCPCS: 74177; 80053; 81001; 83690; 85025; 96361; 96374; 96375; 99284; J0780; J1170; J7030; Q9967